=== PATIENT | female | born 1980 | race Caucasian/White ===

== ENCOUNTER → 2018-05-21 | Outpatient (CLI) | payer BC | LOC: LABNPT 11:44 | PROVIDERS: ATTEND Obstetrics & Gynecology | DX: O28.8 Other abnormal findings on antenatal screening of mother (principal) | CPT/HCPCS: 82570; 84156 ==

== ENCOUNTER → 2018-06-05 | Outpatient (CLI) | payer BC ==
[~2018-06-05] MED LIST: DOCU100C37 PO; IBUP-1780 PO; OMEP20TA33 PO; OXYC1TAB87 PO
== END ==
LOC: LABNPT 09:01
PROVIDERS: ATTEND Obstetrics & Gynecology
DX: O28.8 Other abnormal findings on antenatal screening of mother (principal)
CPT/HCPCS: 82570; 84156

== ENCOUNTER 2018-06-12 10:15 | Inpatient (IN) | payer BC ==
[~2018-06-12] VITALS: Ht 160 cm; Wt 80.1 kg
[2018-06-12 10:26] VITALS: BP 141/93
[2018-06-12] MEDS: D5 LR IV SOLUTION 1,000 ML IV SCH ×3 (10:40→17:11)
[2018-06-12] MEDS ORDERED: OMEP20TA33 PO (10:46)
[2018-06-12 11:55] LABS: BASOPHILS % (AUTO) 0 % (0-10); EOSINOPHILS # (AUTO) 0.1 10^3/uL (0.0-0.3); EOSINOPHILS % (AUTO) 1 % (0-10); HEMATOCRIT 31 % (35-52); LYMPHOCYTES # (AUTO) 1.6 X 10^3 (1.0-4.0); LYMPHOCYTES % (AUTO) 18 % (12-44); MEAN CORPUSCULAR HEMOGLOBIN 26 PG (25-34); MEAN CORPUSCULAR HGB CONC 33 G/DL (32-36); MEAN CORPUSCULAR VOLUME 79 FL (80-99); MEAN PLATELET VOLUME 12.8 FL (7.4-10.4); MONOCYTES # (AUTO) 0.8 X 10^3 (0.0-1.0); MONOCYTES % (AUTO) 9 % (0-12); NEUTROPHILS # (AUTO) 6.6 X 10^3 (1.8-7.8); NEUTROPHILS % (AUTO) 73 % (42-75); PLATELET COUNT 214 10^3/uL (130-400); RED BLOOD COUNT 3.86 10^6/uL (4.35-5.85); RED CELL DISTRIBUTION WIDTH 13.8 % (10.0-14.5)
[2018-06-12 12:08] LABS: BILIRUBIN,URINE NEGATIVE (NEGATIVE); CLARITY,URINE VERY CLOUDY; COLOR,URINE YELLOW; GLUCOSE, URINE (UA) NEGATIVE (NEGATIVE); KETONES,URINE 2+ (NEGATIVE); LEUKOCYTE ESTERASE ,URINE NEGATIVE (NEGATIVE); NITRITE,URINE NEGATIVE (NEGATIVE); PH,URINE 6 (5-9); PROTEIN,URINE 1+ (NEGATIVE); UROBILINOGEN,URINE NORMAL (NORMAL)
[2018-06-12 12:19] LABS: BACTERIA,URINE NEGATIVE /HPF; RBC,URINE RARE /HPF
[2018-06-12] MEDS ORDERED: AMPICILLIN FOR IV USE 2,000 MG in NS (IVPB) 50 ML IV NR (13:15)
[2018-06-12] MEDS ORDERED: NS (IVPB) 50 ML ONE (13:18)
[2018-06-12] MEDS ORDERED: AMPICILLIN 2,000 MG/20 ML (IV USE) ONE (13:18)
[2018-06-12] MEDS ORDERED: BETAMETHASONE ACE/NA PHOS 6 MG/ML (CELESTONE SOLUSPAN) ONE ×2 (13:19→13:27)
[2018-06-12 13:26] LABS: ALANINE AMINOTRANSFERASE 14 U/L (0-55); ALBUMIN 3.3 GM/DL (3.2-4.5); ALKALINE PHOSPHATASE 129 U/L (40-136); BILIRUBIN,TOTAL 0.4 MG/DL (0.1-1.0); BUN/CREATININE RATIO 7; CALCIUM 9.1 MG/DL (8.5-10.1); CARBON DIOXIDE 19 MMOL/L (21-32); CHLORIDE 109 MMOL/L (98-107); CREATININE SERUM 0.68 MG/DL (0.60-1.30); GFR ESTIMATED > 60; GLUCOSE 69 MG/DL (70-105); POTASSIUM 3.8 MMOL/L (3.6-5.0); SODIUM 137 MMOL/L (135-145); URIC ACID 4.6 MG/DL (2.6-7.2)
[2018-06-12] MEDS: BETAMETHASONE ACE/NA PHOS 6 MG/ML (CELESTONE SOLUSPAN) IM SCH (13:30)
[2018-06-12 14:21] VITALS: BP 122/77
--- NOTE | 2018-06-12 17:23 | History & Physical ---
History and Physical Date Seen by Provider: Jun 12, 2018 Time Seen by Provider: 17:18 This patient is a 37-year-old G 3 P2 female currently at 36-4/7 weeks' gestation. She was seen on this date and found to be having regular contractions. Her GBS culture after 35 weeks gestation was positive. Labor and delivery for evaluation and hydration. In spite of hydration her contractions have persisted and seemed to have intensified she has demonstrated cervical change from 2 and thick in the clinic to almost 3 and very soft multiparous cervix. The presenting part has dropped from the -3 station to -1. Membranes are intact. Allergies are none Medications are vitamins Medical social and surgical histories are per the antepartum record Lab work is as follows Laboratory Tests Test 06/12/18 10:35 06/12/18 12:00 06/12/18 12:20 Range/Units White Blood Count 9.0 4.3-11.0 10^3/uL Red Blood Count 3.86 L 4.35-5.85 10^6/uL Hemoglobin 10.0 L 11.5-16.0 G/DL Hematocrit 31 L 35-52 % Mean Corpuscular Volume 79 L 80-99 FL Mean Corpuscular Hemoglobin 26 25-34 PG Mean Corpuscular Hemoglobin Concent 33 32-36 G/DL Red Cell Distribution Width 13.8 10.0-14.5 % Platelet Count 214 130-400 10^3/uL Mean Platelet Volume 12.8 H 7.4-10.4 FL Neutrophils (%) (Auto) 73 42-75 % Lymphocytes (%) (Auto) 18 12-44 % Monocytes (%) (Auto) 9 0-12 % Eosinophils (%) (Auto) 1 0-10 % Basophils (%) (Auto) 0 0-10 % Neutrophils # (Auto) 6.6 1.8-7.8 X 10^3 Lymphocytes # (Auto) 1.6 1.0-4.0 X 10^3 Monocytes # (Auto) 0.8 0.0-1.0 X 10^3 Eosinophils # (Auto) 0.1 0.0-0.3 10^3/uL Basophils # (Auto) 0.0 0.0-0.1 10^3/uL Sodium Level 137 135-145 MMOL/L Potassium Level 3.8 3.6-5.0 MMOL/L Chloride Level 109 H 98-107 MMOL/L Carbon Dioxide Level 19 L 21-32 MMOL/L Anion Gap 9 5-14 MMOL/L Blood Urea Nitrogen 5 L 7-18 MG/DL Creatinine 0.68 0.60-1.30 MG/DL Estimat Glomerular Filtration Rate > 60 BUN/Creatinine Ratio 7 Glucose Level 69 L 70-105 MG/DL Uric Acid 4.6 2.6-7.2 MG/DL Calcium Level 9.1 8.5-10.1 MG/DL Corrected Calcium 9.7 8.5-10.1 MG/DL Total Bilirubin 0.4 0.1-1.0 MG/DL Aspartate Amino Transf (AST/SGOT) 19 5-34 U/L Alanine Aminotransferase (ALT/SGPT) 14 0-55 U/L Alkaline Phosphatase 129 40-136 U/L Lactate Dehydrogenase 216 125-220 U/L Total Protein 6.0 L 6.4-8.2 GM/DL Albumin 3.3 3.2-4.5 GM/DL Urine Color YELLOW Urine Clarity VERY CLOUDY H Urine pH 6 5-9 Urine Specific Icard 1.015 L 1.016-1.022 Urine Protein 1+ H 7 6-12 MG/DL Urine Glucose (UA) NEGATIVE NEGATIVE Urine Ketones 2+ H NEGATIVE Urine Nitrite NEGATIVE NEGATIVE Urine Bilirubin NEGATIVE NEGATIVE Urine Urobilinogen NORMAL NORMAL MG/DL Urine Leukocyte Esterase NEGATIVE NEGATIVE Urine RBC (Auto) NEGATIVE NEGATIVE Urine RBC RARE /HPF Urine WBC NONE /HPF Urine Squamous Epithelial Cells 5-10 /HPF Urine Crystals NONE /LPF Urine Bacteria NEGATIVE /HPF Urine Casts NONE /LPF Urine Mucus NEGATIVE /LPF Urine Culture Indicated NO Urine Creatinine 73 30-125 MG/DL Urine Protein/Creatinine Ratio 0.10 monitor shows contractions every 2-3 minutes. These contractions lasting in excess of a minute. heart rate pattern is normal and reassuring HEENT exam is normal Neck is supple no lymphadenopathy no thyromegaly Abdomen is gravid soft nontender nondistended Extremities show clubbing cyanosis. There is no Homans sign. Pelvic exam is as noted above. Assessment and plan 36 and 47 weeks gestation with labor. Patient has been started on ampicillin for GBS prophylaxis. As she is less than 37 weeks she is also been given a single dose of betamethasone. She has been hydrated now with well over a liter of fluid to the point that she is voiding frequently. Plan is for continued observation with IV fluids IV antibiotics and no plan for tocolyse's if she shows continued progression in labor. Patient understands the plan and agrees. 36-4/7 weeks with labor Allergies and Home Medications Allergies Coded Allergies: No Known Drug Allergies (Unverified , 06/12/18) Home Medications Omeprazole Magnesium 20 Mg Tablet., 20 MG PO DAILY, (Reported) Patient Home Medication List Home Medication List Reviewed: Yes FRANNIE MCGEE MD Jun 12, 2018 17:23
[2018-06-12] MEDS: AMPICILLIN FOR IV USE 1,000 MG in NS (IVPB) 50 ML IV SCH ×2 (17:59→22:00)
[2018-06-12 20:14] VITALS: BP 141/88
[2018-06-12] MEDS ORDERED: BUTORPHANOL INJ 2 MG/ML (STADOL) VIAL ONE (22:04)
[2018-06-12] MEDS ORDERED: BUTORPHANOL INJ 2 MG/ML (STADOL) VIAL IV ONE (22:15)
[2018-06-13] VITALS (63 sets, daily range): BP systolic 85–167; BP diastolic 47–98
[2018-06-13] MEDS ORDERED: TERBUTALINE INJ 1 MG/ML (BRETHINE) AMP ONE (00:40)
[2018-06-13] MEDS: AMPICILLIN FOR IV USE 1,000 MG in NS (IVPB) 50 ML IV SCH ×3 (02:00→12:41)
[2018-06-13] MEDS ORDERED: TERBUTALINE INJ 1 MG/ML (BRETHINE) AMP SC ONE (02:00)
[2018-06-13] MEDS: D5 LR IV SOLUTION 1,000 ML IV SCH ×3 (03:18→13:42)
[2018-06-13 06:05] LABS: BASOPHILS % (AUTO) 0 % (0-10); EOSINOPHILS % (AUTO) 0 % (0-10); HEMATOCRIT 30 % (35-52); HEMOGLOBIN 9.5 G/DL (11.5-16.0); LYMPHOCYTES % (AUTO) 7 % (12-44); MEAN CORPUSCULAR HEMOGLOBIN 25 PG (25-34); MEAN CORPUSCULAR HGB CONC 32 G/DL (32-36); MEAN CORPUSCULAR VOLUME 80 FL (80-99); MEAN PLATELET VOLUME 12.5 FL (7.4-10.4); MONOCYTES # (AUTO) 0.6 X 10^3 (0.0-1.0); MONOCYTES % (AUTO) 4 % (0-12); NEUTROPHILS # (AUTO) 13.3 X 10^3 (1.8-7.8); NEUTROPHILS % (AUTO) 89 % (42-75); PLATELET COUNT 225 10^3/uL (130-400); RED BLOOD COUNT 3.76 10^6/uL (4.35-5.85); RED CELL DISTRIBUTION WIDTH 13.8 % (10.0-14.5); WHITE BLOOD COUNT 14.9 10^3/uL (4.3-11.0)
[2018-06-13] MEDS ORDERED: OXYTOCIN/NORMAL SALINE 500 ML IV SCH ×3 (07:02→17:37)
--- NOTE | 2018-06-13 07:08 | Progress Note-Standard ---
Standard Progress Note Progress Notes/Assess & Plan Date Seen by a Provider: Jun 13, 2018 Time Seen by a Provider: 07:04 Progress/Assessment & Plan Patient complains of persistent contractions and pressure. She denies rupture membranes or bleeding. She denies headache. She does complain of increasing swelling and edema patient feels baby moving. Patient denies nausea vomiting. Vital Signs Date Time Temp Pulse Resp B/P (MAP) Pulse Ox O2 Delivery O2 Flow Rate FiO2 06/13/18 03:19 99.0 120 18 118/80 (93) Room Air 06/13/18 00:45 105 18 99 Room Air 06/13/18 00:01 98.5 86 18 124/77 (93) Room Air 06/12/18 20:14 99.6 99 18 141/88 (105) Room Air 06/12/18 14:21 81 18 122/77 (92) Room Air 06/12/18 10:26 99.0 99 18 141/93 (109) Room Air I & O 06/13/18 07:00 Intake Total 2150 ml Balance 2150 ml Vital signs are stable. Blood pressures have been somewhat labile but acceptable. Patient is afebrile. The abdomen is gravid and nontender. Extremities show no clubbing or cyanosis. There is fairly significant pedal edema. DTRs are 3+ to 4 over 4 globally Pelvic exam is pending monitor shows frequent accelerations with better than average beat-to- beat variability. Patient has had 2-3 episodes of bradycardia. Contractions have varied from every 2-3 minutes to now every 5-8 minutes. Laboratory Tests 06/12/18 10:35 06/13/18 05:45 Assessment and plan 36 and now 5/7 weeks' gestation with labor a GBS positive culture suspicious heart rate tracing suspicion for a LGA baby. Plan is for amniotomy and Pitocin augmentation of labor. We will continue the antibiotics until delivery. Patient will be allowed an epidural. Patient understands that there is increased potential for need for delivery. FRANNIE MCGEE MD Jun 13, 2018 07:08
[2018-06-13 07:13] LABS: BAND NEUTROPHILS 0 %; BASOPHILS % (MANUAL) 0 %; EOSINOPHILS % (MANUAL) 0 %; LYMPHOCYTES % (MANUAL) 9 %; MONOCYTES % (MANUAL) 6 %; NEUTROPHILS % (MANUAL) 85 %; RBC MORPH NORMAL
[2018-06-13] MEDS ORDERED: LACTATED RINGERS 1,000 ML IV ONE ×2 (07:24→09:40)
[2018-06-13] MEDS ORDERED: SUFENTA 0.6MCG/ML BUPIVA 0.125 100 ML ONE (07:24)
[2018-06-13] MEDS ORDERED: fentaNYL INJECTION 100 MCG/2 ML AMP ONE (09:07)
[2018-06-13] MEDS ORDERED: BUPIVACAINE 0.25% 30 ML (SENSORCAINE) VIAL ONE (09:07)
[2018-06-13] MEDS ORDERED: LIDOCAINE PF 2% 5 ML (XYLOCAINE) VIAL ONE (09:07)
[2018-06-13] MEDS ORDERED: CATHETER FLUSH 10 ML SYR IV PRN (09:45)
[2018-06-13] MEDS ORDERED: ONDANSETRON 4 MG/2 ML (SDV) Z0FRAN IV PRN (09:45)
[2018-06-13] MEDS ORDERED: NALOXONE 0.4 MG/ML 1 ML (NARCAN) VIAL IV PRN (09:45)
[2018-06-13] MEDS ORDERED: EPIDURAL (SUFENTA 0.6MCG/ML BUPIVA 0.125%) 100 ML BAG EPI SCH (09:45)
[2018-06-13] MEDS ORDERED: diphenhydrAMINE 50 MG/ML INJ (BENADRYL) IV PRN (09:45)
[2018-06-13] MEDS: BETAMETHASONE ACE/NA PHOS 6 MG/ML (CELESTONE SOLUSPAN) IM SCH (12:43)
[2018-06-13] MEDS ORDERED: KETOROLAC 30 MG/ML VIAL ONE (17:44)
[2018-06-13] MEDS ORDERED: BENZOCAINE/MENTHOL (DERMOPLAST) 56 ML CAN TP ONE (17:44)
[2018-06-13] MEDS ORDERED: TETANUS,DIPTH,PERTUSS P/F (BOOSTRIX) 0.5 ML VIAL IM ONE (17:45)
[2018-06-13] MEDS ORDERED: BENZOCAINE/MENTHOL (DERMOPLAST) 56 ML CAN TP PRN ×2 (17:45→18:00)
[2018-06-13] MEDS ORDERED: ONDANSETRON 4 MG/2 ML (SDV) Z0FRAN IVP PRN (17:45)
[2018-06-13] MEDS ORDERED: oxyCODONE/APAP 5/325MG (PERCOCET 5) TABLET PO PRN (17:45)
[2018-06-13] MEDS: KETOROLAC 30 MG/ML VIAL IV SCH ×2 (17:48→22:59)
[2018-06-13] MEDS: DOCUSATE SODIUM 100 MG (COLACE) CAP PO SCH (20:50)
[2018-06-14 00:10] VITALS: BP 121/70
--- NOTE | 2018-06-14 01:51 | OPERATIVE REPORT ---
DATE OF SERVICE: 06/13/2018 DELIVERY NOTE The patient delivered by term operative vaginal delivery, a viable female with Apgars of 8 and 9 at 1 and 5 minutes respectively, weight of 7 pounds 4 ounces, time of 1548 and a cord blood pH 7.08. The infant was delivered over midline episiotomy under epidural analgesia. Valentino forceps were applied at the +2 to +3 station secondary to decreased heart rate to the 60s and 70s with the contractions. After correct placement was confirmed, gentle traction along the pelvic axis with the next 2 to 3 pushes delivered the vertex onto the perineum. Forceps were removed and maternal expulsive effort completed the delivery. Episiotomy was employed to shorten the second stage and to allow for adequate room as the introitus was quite narrow compared to the presenting part. The was bulb suctioned on delivery of the head and again on completion of delivery. Umbilical cord was doubly clamped, father cut the cord, and baby was passed to mom's abdomen. The cervix, vagina, rectum and perineum were examined after the placenta delivered spontaneously [place]. It was a normal placenta with a 3-vessel cord. It was sent to pathology for permanent section. There was a midline episiotomy only. The cervix and vagina, rectum and perineum were otherwise intact. The episiotomy was repaired with a single suture of 3-0 Vicryl Rapide in the usual manner without difficulty to good reapproximation and good hemostasis. Sponge and needle counts were correct on completion of delivery and repair. Estimated blood loss was around 200 mL. The patient tolerated the delivery well and remained in the LDR for recovery. The baby remained with the mom. Job ID: [id number] DocumentID: [id number] Dictated Date: 06/13/2018 16:07:53 [employer]ob[employer] Fisherman Date: 06/14/2018 01:50:21 Dictated By: FRANNIE MCGEE MD MTDD
[2018-06-14 04:50] VITALS: BP 110/65
[2018-06-14] MEDS: IBUPROFEN 800 MG (MOTRIN) TAB PO SCH ×4 (06:56→23:58)
--- NOTE | 2018-06-14 08:35 | Progress Note-Standard ---
Standard Progress Note Progress Notes/Assess & Plan Date Seen by a Provider: Jun 14, 2018 Time Seen by a Provider: 08:34 Progress/Assessment & Plan Patient complains of persistent contractions and pressure. She denies rupture membranes or bleeding. She denies headache. She does complain of increasing swelling and edema patient feels baby moving. Patient denies nausea vomiting. Vital Signs Date Time Temp Pulse Resp B/P (MAP) Pulse Ox O2 Delivery O2 Flow Rate FiO2 06/13/18 03:19 99.0 120 18 118/80 (93) Room Air 06/13/18 00:45 105 18 99 Room Air 06/13/18 00:01 98.5 86 18 124/77 (93) Room Air 06/12/18 20:14 99.6 99 18 141/88 (105) Room Air 06/12/18 14:21 81 18 122/77 (92) Room Air 06/12/18 10:26 99.0 99 18 141/93 (109) Room Air I & O 06/13/18 07:00 Intake Total 2150 ml Balance 2150 ml Vital signs are stable. Blood pressures have been somewhat labile but acceptable. Patient is afebrile. The abdomen is gravid and nontender. Extremities show no clubbing or cyanosis. There is fairly significant pedal edema. DTRs are 3+ to 4 over 4 globally Pelvic exam is pending monitor shows frequent accelerations with better than average beat-to- beat variability. Patient has had 2-3 episodes of bradycardia. Contractions have varied from every 2-3 minutes to now every 5-8 minutes. Laboratory Tests 06/12/18 10:35 06/13/18 05:45 Assessment and plan 36 and now 5/7 weeks' gestation with labor a GBS positive culture suspicious heart rate tracing suspicion for a LGA baby. Plan is for amniotomy and Pitocin augmentation of labor. We will continue the antibiotics until delivery. Patient will be allowed an epidural. Patient understands that there is increased potential for need for delivery. June 14, 2018 This patient is without complaint. She is ambulating, voiding, tolerating oral intake well, has good pain control. Patient denies chest pain, denies shortness of breath, denies nausea vomiting, and denies headache Vital Signs 06/13/18 06/14/18 15:45 04:50 Temp 97.2 Pulse 87 Resp 18 B/P (MAP) 110/65 (80) Pulse Ox 98 O2 Delivery Room Air O2 Flow Rate 15.00 Vital signs are stable. Patient is afebrile. Fundus is firm below the umbilicus and nontender. Extremities show clubbing cyanosis. There is no Homans sign. Assessment and plan post day number 1 status post spontaneous vaginal delivery doing well. Plan is for routine convalescence care today and likely discharge home tomorrow Final Diagnosis spontaneous vaginal delivery FRANNIE MCGEE MD Jun 14, 2018 08:35
[2018-06-14] MEDS ORDERED: IBUP-1780 PO (08:37)
[2018-06-14] MEDS ORDERED: DOCU100C37 PO (08:37)
[2018-06-14] MEDS ORDERED: OXYC1TAB87 PO (08:37)
--- NOTE | 2018-06-14 08:38 | Discharge Instructions ---
Discharge Instructions Discharge Medications New, Converted or Re-Newed RX: RX on Chart Patient Instructions Patient Instructions: As directed Return to The Hospital For: as directed Activity & Diet Discharge Diet: No Restrictions Activity as Tolerated: No Orders-Post D/C & Referrals Follow Up Appt: Call to make follow up appt. for patient in 4 weeks. Activity Per routine post vaginal delivery instructions. Diet as tolerated Patient may shower or tub bathe as desired. FRANNIE MCGEE MD Jun 14, 2018 08:38
[2018-06-14 09:00] VITALS: BP 124/67
[2018-06-14] MEDS: DOCUSATE SODIUM 100 MG (COLACE) CAP PO SCH ×2 (09:37→20:11)
[2018-06-14] MEDS ORDERED: WITCH HAZEL(TUCKS) 40 EA JAR TOP PRN (09:45)
[2018-06-14] MEDS: KETOROLAC 30 MG/ML VIAL IV SCH (11:45)
[2018-06-14] MEDS ORDERED: IBUPROFEN 800 MG (MOTRIN) TAB PO ONE (12:16)
[2018-06-14 12:45] VITALS: BP 132/75
--- NOTE | 2018-06-14 12:53 | Anesthesia-Regional Post-Op ---
Regional Patient Condition Mental Status: Alert, Oriented x3 Circulation: Same as Pre-Op Headache: Absent Sensation: Full Recovery Motor Block: Absent Post Op Complications Complications None Follow Up Care/Instructions Patient Instructions None needed. Anesthesia/Patient Condition Patient is doing well, no complaints, stable vital signs, no apparent adverse anesthesia problems. No complications reported per nursing. [place] [facility] [place] Yes SHANDRA BROWN CRNA Jun 14, 2018 12:53
[2018-06-14 16:30] VITALS: BP 137/81
[2018-06-14 22:30] VITALS: BP 137/84
[2018-06-15 03:59] VITALS: BP 121/74
[2018-06-15 08:45] VITALS: BP 148/86
[2018-06-15 09:00] VITALS: BP 134/78
[2018-06-15] MEDS: DOCUSATE SODIUM 100 MG (COLACE) CAP PO SCH (09:10)
--- NOTE | 2018-06-15 09:10 | Discharge Summary ---
Discharge Summary 36-5/7 week operative vaginal delivery This patient is a 37-year-old white female who was admitted from my clinic on June secondary to labor and elevated blood pressure. Her history is significant for GBS positive culture. She was started on ampicillin for GBS prophylaxis. She was observed through the evening and through the night of June 12, 2018. She continued to contract and showed gradual cervical change. On June 13, 2018 amniotomy was performed when she was 5 cm dilated. She continued to contract in labor and eventually became complete. There have been couple episodes of decreased heart rate during the period of labor that has always resolved. As she was pushing baby's heart rate was dropped into the 60s. When that became persistent and the presenting part was at +2 to +3 station Valentino forceps were applied to facilitate the delivery. Episiotomy was performed as well to shorten the second stage. Delivery occurred promptly. The patient has recovered uneventfully. On June 14 2018 which was post day number 1, she was ambulating, voiding, tolerating oral intake well had good pain control. She had routine convalescence care through the day. Now on June 15, 2018/ day 2 patient again is ambulating well voiding well tolerating oral intake well has good pain control her vital signs are stable she is afebrile she feels up to discharge home and is determined she can be discharged home. Principal diagnoses this hospitalization is operative vaginal delivery Secondary diagnoses are labor, PIH, GBS positive culture, nonreassuring heart rate pattern Operations and procedures include IV fluids, IV antibiotics, amniotomy, Pitocin augmentation of labor, epidural analgesia, operative vaginal delivery using Valentino forceps. Patient was given appropriate discharge instructions. Discharge medications are Percocet and Motrin and Colace. Clinical Quality Measures DVT/VTE Risk/Contraindication: Risk Factor Score Per Nursin RFS Level Per Nursing on Admit: 2=Moderate FRANNIE MCGEE MD Jun 15, 2018 09:10
[2018-06-15] MEDS: IBUPROFEN 800 MG (MOTRIN) TAB PO SCH (09:11)
--- NOTE | 2018-06-15 09:11 | Progress Note-Standard ---
Standard Progress Note Progress Notes/Assess & Plan Date Seen by a Provider: Jun 15, 2018 Time Seen by a Provider: 09:10 Progress/Assessment & Plan Patient complains of persistent contractions and pressure. She denies rupture membranes or bleeding. She denies headache. She does complain of increasing swelling and edema patient feels baby moving. Patient denies nausea vomiting. Vital Signs Date Time Temp Pulse Resp B/P (MAP) Pulse Ox O2 Delivery O2 Flow Rate FiO2 06/13/18 03:19 99.0 120 18 118/80 (93) Room Air 06/13/18 00:45 105 18 99 Room Air 06/13/18 00:01 98.5 86 18 124/77 (93) Room Air 06/12/18 20:14 99.6 99 18 141/88 (105) Room Air 06/12/18 14:21 81 18 122/77 (92) Room Air 06/12/18 10:26 99.0 99 18 141/93 (109) Room Air I & O 06/13/18 07:00 Intake Total 2150 ml Balance 2150 ml Vital signs are stable. Blood pressures have been somewhat labile but acceptable. Patient is afebrile. The abdomen is gravid and nontender. Extremities show no clubbing or cyanosis. There is fairly significant pedal edema. DTRs are 3+ to 4 over 4 globally Pelvic exam is pending monitor shows frequent accelerations with better than average beat-to- beat variability. Patient has had 2-3 episodes of bradycardia. Contractions have varied from every 2-3 minutes to now every 5-8 minutes. Laboratory Tests 06/12/18 10:35 06/13/18 05:45 Assessment and plan 36 and now 5/7 weeks' gestation with labor a GBS positive culture suspicious heart rate tracing suspicion for a LGA baby. Plan is for amniotomy and Pitocin augmentation of labor. We will continue the antibiotics until delivery. Patient will be allowed an epidural. Patient understands that there is increased potential for need for delivery. June 14, 2018 This patient is without complaint. She is ambulating, voiding, tolerating oral intake well, has good pain control. Patient denies chest pain, denies shortness of breath, denies nausea vomiting, and denies headache Vital Signs 06/13/18 06/14/18 15:45 04:50 Temp 97.2 Pulse 87 Resp 18 B/P (MAP) 110/65 (80) Pulse Ox 98 O2 Delivery Room Air O2 Flow Rate 15.00 Vital signs are stable. Patient is afebrile. Fundus is firm below the umbilicus and nontender. Extremities show clubbing cyanosis. There is no Homans sign. Assessment and plan post day number 1 status post spontaneous vaginal delivery doing well. Plan is for routine convalescence care today and likely discharge home tomorrow June 15, 2018 See discharge summary from this date. Final Diagnosis 36-5/7 weeks operative vaginal delivery FRANNIE MCGEE MD Jun 15, 2018 09:11
[2018-06-15 12:25] VITALS: BP 134/78
== END 2018-06-15 12:25 | disposition home or self-care (01) | DRG 807 ==
LOC: LDRP 10:15 → WSo 10:21 → LDRP 17:26 → WSo 17:26 → LDRP 18:40 → UNDOADMOB 18:40 → LDRP 06-13 07:00 → OBSVTOIN 06-13 07:02 → LDRP 06-13 18:15 → OBSVTOIN 06-14 07:00 → INTOOBSV 06-14 07:00 → UNDODISIN 06-15 12:25 → EDSTATUS 06-16 10:09
PROVIDERS: ADMIT Obstetrics & Gynecology; ATTEND Obstetrics & Gynecology
PROC: 10D07Z4 Extraction of Products of Conception, Mid Forceps, Via Natural or Artificial Opening (ICD-10-PCS; principal; 2018-06-13)
PROC: 0W8NXZZ Division of Female Perineum, External Approach (ICD-10-PCS; 2018-06-13)
DX: O60.14X0 Preterm labor third trimester with preterm delivery third trimester, not applicable or unspecified (principal); O76 Abnormality in fetal heart rate and rhythm complicating labor and delivery; O99.820 Streptococcus B carrier state complicating pregnancy; O99.613 Diseases of the digestive system complicating pregnancy, third trimester; K21.9 Gastro-esophageal reflux disease without esophagitis; Z3A.36 36 weeks gestation of pregnancy; Z37.0 Single live birth
CPT/HCPCS: 36415; 80053; 81000; 82570; 83615; 84156; 84550; 85007; 85025; 85027; 86850; 86900; 86901; G0378

== ENCOUNTER → 2018-12-19 | Outpatient (CLI) | payer BC ==
--- NOTE | 2018-12-19 12:20 | Diagnostic Imaging Report ---
EXAMINATION: Digital mammogram bilateral screening. The current study was also evaluated with a Computer Aided Detection (CAD) system. 3-D tomosynthesis was also performed and reviewed. INDICATION: Screening. This is the patient's baseline study. At this time, there are no current complaints. FINDINGS: The fibroglandular tissue in both breasts is dense. This does limit the sensitivity of this exam. There is no primary or secondary sign of malignancy noted. IMPRESSION: 1. There is no evidence for malignancy. 2. The patient should have her annual bilateral screening mammogram on schedule in December of 2019. ACR BI-RADS Category 1: Negative. Result letter will be mailed to the patient. Note: At least 10% of breast cancer is not imaged by mammography. Dictated by: Dictated on workstation # [id number]
== END ==
LOC: RAD 08:51
PROVIDERS: ATTEND Obstetrics & Gynecology
DX: Z12.31 Encounter for screening mammogram for malignant neoplasm of breast (principal)
CPT/HCPCS: 77067

== ENCOUNTER → 2020-02-12 | Outpatient (CLI) | payer BC ==
--- NOTE | 2020-02-12 12:07 | Diagnostic Imaging Report ---
INDICATION: Routine screening. Comparison is made with prior mammogram from 12/19/2018. 2-D and 3-D bilateral screening mammography was performed with CAD. Both breasts remain heterogeneously dense, limiting the sensitivity of mammography. The parenchymal pattern is stable. No mass or malignant appearing microcalcifications are seen. Axillae are unremarkable. IMPRESSION: BI-RADS Category 1 No mammographic features suspicious for malignancy are identified. ACR BI-RADS Category 1: Negative. Result letter will be mailed to the patient. Note: At least 10% of breast cancer is not imaged by mammography. Dictated by: Dictated on workstation # [id number]
== END ==
LOC: RAD 08:13
PROVIDERS: ATTEND Obstetrics & Gynecology
DX: Z12.31 Encounter for screening mammogram for malignant neoplasm of breast (principal)
CPT/HCPCS: 77063; 77067

== ENCOUNTER → 2021-03-30 | Outpatient (CLI) | payer BC ==
--- NOTE | 2021-03-31 10:24 | Diagnostic Imaging Report ---
Digital mammogram INDICATION: Bilateral screening This study was compared to the prior exams of 02/12/2020 and 12/19/2018. At this time there are no current complaints. The current study was also evaluated with a Computer Aided Detection (CAD) system. FINDINGS: The fibroglandular tissue in both breasts is dense. This does limit the sensitivity of this exam. Overall, there does not appear to have been any significant change when compared to the prior study. No primary or secondary sign of malignancy is noted. IMPRESSION: There is no radiographic evidence for malignancy. ACR category 1 ACR BI-RADS Category 1: Negative. Result letter will be mailed to the patient. Note: At least 10% of breast cancer is not imaged by mammography. Dictated by: Dictated on workstation # [id number]
== END ==
LOC: RAD 07:47
PROVIDERS: ATTEND Obstetrics & Gynecology
DX: Z12.31 Encounter for screening mammogram for malignant neoplasm of breast (principal)
CPT/HCPCS: 77063; 77067

== ENCOUNTER → 2022-05-21 | Outpatient (CLI) | payer BC ==
--- NOTE | 2022-05-21 11:51 | Diagnostic Imaging Report ---
Indication: Routine screening. Comparison is made prior mammogram from 03/30/2021 and 02/12/2020. 2-D and 3-D bilateral screening mammography was performed with CAD. CAD is utilized. The current study was also evaluated with a Computer Aided Detection (CAD) system. Both breasts are heterogeneously dense, limiting the sensitivity of mammography. The parenchymal pattern is stable. No mass or malignant-appearing microcalcifications are seen. Axillae are unremarkable. IMPRESSION: BI-RADS Category 1 No mammographic features suspicious for malignancy are identified. ACR BI-RADS Category 1: Negative. Result letter will be mailed to the patient. Note: At least 10% of breast cancer is not imaged by mammography. Dictated by: Dictated on workstation # [id number]
== END ==
LOC: RAD 08:30
PROVIDERS: ATTEND Obstetrics & Gynecology
DX: Z12.31 Encounter for screening mammogram for malignant neoplasm of breast (principal)
CPT/HCPCS: 77063; 77067